=== PATIENT | male | born 1945 | race Caucasian/White ===

== ENCOUNTER → 2018-10-30 | Outpatient (CLI) | payer MEDICARE, BC ==
[~2018-10-30] MED LIST: AMLO1CAP12 PO; ASPI81TA50 PO; ESOM20CA PO; GLUC1TAB91 PO; IBUP1TAB11 PO; MULT-717 PO; RANI150T23 PO; SIMV10TA3 PO
[2018-10-30 09:10] LABS: BASOPHILS # (AUTO) 0.04 x10^3/uL (0-0.1); BASOPHILS % (AUTO) 1 % (0-1); EOSINOPHILS # (AUTO) 0.13 x10^3/uL (0-0.4); EOSINOPHILS % (AUTO) 3 % (1-7); LYMPHOCYTES # (AUTO) 1.15 x10^3/uL (1-3.4); LYMPHOCYTES % (AUTO) 29 % (22-44); MD NO; MEAN CORPUSCULAR HEMOGLOBIN 32.2 pg (27.5-34.5); MEAN CORPUSCULAR HGB CONC 33.9 g/dL (33.2-36.2); MEAN PLATELET VOLUME 8.5 fL (7.4-10.4); MONOCYTES # (AUTO) 0.47 x10^3/uL (0.2-0.8); MONOCYTES % (AUTO) 12 % (2-9); NEUTROPHILS # (AUTO) 2.16 x10^3/uL (1.8-6.8); NEUTROPHILS % (AUTO) 55 % (42-75); PLATELET COUNT 210 x10^3/uL (130-400); RED BLOOD COUNT 5.14 x10^6/uL (4.38-5.82); RED CELL DISTRIBUTION WIDTH 13.4 % (9.4-14.8)
[2018-10-30 09:11] LABS: MICROSCOPIC NOT IND
[2018-10-30 09:13] LABS: CULTURE INDICATED? NO
[2018-10-30 09:17] LABS: ALBUMIN 4.4 g/dL (3.4-5.0); ANION GAP 5 mmol/L (5-15); CALCIUM 9.5 mg/dL (8.5-10.1); CHLORIDE 104 mmol/L (98-107)
[2018-10-30 09:22] LABS: ALANINE AMINOTRANSFERASE 35 U/L (12-78); ALKALINE PHOSPHATASE 72 U/L (45-117); BILIRUBIN,TOTAL 0.8 mg/dL (0.2-1.0); CREATININE 0.87 mg/dL (0.7-1.3); TOTAL PROTEIN 8.2 g/dL (6.4-8.2)
== END | disposition home or self-care (01) ==
LOC: STAR 08:03
PROVIDERS: ATTEND Physician Assistant
DX: Z01.818 Encounter for other preprocedural examination (principal); M17.12 Unilateral primary osteoarthritis, left knee
CPT/HCPCS: 36415; 80053; 81003; 85025; 87081; 87806; 93005; G0475

== ENCOUNTER 2018-11-10 06:01 | Observation (INO) | payer MEDICARE, BC ==
[~2018-11-10] VITALS: Ht 188 cm; Wt 83.9 kg
[2018-11-10] MEDS ORDERED: LACTATED RINGERS 1,000 ML IV SCH (06:17)
[2018-11-10] MEDS ORDERED: VANCOMYCIN PMX 1GM/200ML 200 ML IV ONE (06:30)
[2018-11-10] MEDS ORDERED: KETOROLAC 60 MG/2 ML ONE (06:33)
[2018-11-10] MEDS ORDERED: ROPIvacaine/PF 0.2%, 20 ML ONE ×2 (06:33→06:46)
[2018-11-10] MEDS ORDERED: TRANEXAMIC ACID 100 MG/ML, 10ML ONE (06:33)
[2018-11-10] MEDS ORDERED: morphine SULFATE/PF 1 MG/ML, 10ML ONE (06:34)
[2018-11-10] MEDS ORDERED: BACITRACIN 50,000 UNIT ONE (06:34)
[2018-11-10] MEDS ORDERED: EPINEPHRINE 1 MG/ML, 1ML ONE (06:34)
[2018-11-10] MEDS ORDERED: SODIUM CHLORIDE 0.9% 50 ML ONE (06:34)
[2018-11-10] MEDS ORDERED: FENTANYL PF 250 MCG/5ML ONE ×2 (06:40→08:18)
[2018-11-10] MEDS ORDERED: GABAPENTIN 300 MG CAPSULE PO ONE (07:00)
[2018-11-10] MEDS ORDERED: ACETAMINOPHEN 500 MG TABLET PO ONE (07:00)
[2018-11-10] MEDS ORDERED: ONDANSETRON 2MG/ML, 2ML ONE ×2 (07:21→09:55)
[2018-11-10] MEDS ORDERED: CEFAZOLIN 1,000 MG ONE ×2 (07:21→07:24)
[2018-11-10] MEDS ORDERED: DEXAMETHASONE 4 MG/ML, 1ML ONE (07:21)
[2018-11-10] MEDS ORDERED: GLYCOPYRROLATE 0.2MG/1ML, 5ML ONE (07:21)
[2018-11-10] MEDS ORDERED: ROCURONIUM 10MG/ML,5ML ONE (07:21)
[2018-11-10] MEDS ORDERED: PROPOFOL 10 MG/ML, 20ML ONE (07:21)
[2018-11-10] MEDS ORDERED: NEOSTIGMINE 1 MG/ML, 10ML ONE (07:21)
[2018-11-10] MEDS ORDERED: morphine SULFATE 10 MG/ML, 1ML IVPush PRN (07:30)
[2018-11-10] MEDS ORDERED: TRANEXAMIC ACID 1,000 MG in SODIUM CHLORIDE 0.9% 100 ML IV ONE (07:30)
[2018-11-10] MEDS ORDERED: MORPHINE SULFATE 4 MG/ML, 1ML IVPush PRN (07:30)
[2018-11-10] MEDS ORDERED: ONDANSETRON 2MG/ML, 2ML IV PRN (07:30)
[2018-11-10] MEDS ORDERED: LORazepam 2 MG/ML, 1ML IVPush PRN (07:30)
[2018-11-10] MEDS ORDERED: HALOPERIDOL 5 MG/ML IV PRN (07:30)
[2018-11-10] MEDS ORDERED: DIPHENHYDRAMINE 50 MG CAPSULE PO PRN (07:30)
[2018-11-10] MEDS ORDERED: MEPERIDINE/PF 25MG/0.5ML IVPush PRN (07:30)
[2018-11-10] MEDS ORDERED: LABETALOL 5 MG/ML SYRINGE IV PRN (07:30)
[2018-11-10] MEDS ORDERED: OXYcodone 5 MG/5 ML ORAL.SOL UDC PO PRN (07:30)
[2018-11-10] MEDS ORDERED: ACETAMINOPHEN 325 MG TABLET PO PRN (07:30)
[2018-11-10] MEDS ORDERED: PROMETHAZINE 25 MG/ML, 1ML IM PRN ×2 (07:30)
[2018-11-10] MEDS ORDERED: PROMETHAZINE 25 MG/ML, 1ML IV PRN (07:30)
[2018-11-10] MEDS ORDERED: PROMETHAZINE 25 MG SUPP PR PRN (07:30)
[2018-11-10] MEDS ORDERED: PROMETHAZINE 12.5 MG SUPP PR PRN (07:30)
[2018-11-10] MEDS ORDERED: hydrALAzine 20 MG/ML, 1ML IV PRN (07:30)
[2018-11-10] MEDS ORDERED: ZOLPIDEM 5MG TABLET PO PRN (07:30)
[2018-11-10] MEDS ORDERED: OXYcodone 5 MG/5 ML ORAL.SOL UDC ONE (09:28)
[2018-11-10] MEDS ORDERED: HYDROmorphone 2 MG/ML, 1ML ONE (09:28)
[2018-11-10] MEDS ORDERED: FENTANYL PF 100 MCG/2ML ONE (09:28)
[2018-11-10] MEDS: FENTANYL PF 100 MCG/2ML IV PRN ×2 (09:52→10:02)
[2018-11-10] MEDS: HYDROmorphone 2 MG/ML, 1ML IVPush PRN ×2 (10:09→10:14)
[2018-11-10] MEDS: D5%-0.45% NACL 1,000 ML IV SCH ×2 (12:13→19:00)
[2018-11-10] MEDS: OXYcodone/APAP 7.5/325MG TABLET PO PRN ×3 (13:34→23:39)
[2018-11-10 15:13] VITALS: BP 126/78
[2018-11-10] MEDS: CEFAZOLIN PMX 2GM/50ML 50 ML IVPB SCH ×2 (16:27→23:39)
[2018-11-10] MEDS: ONDANSETRON 2MG/ML, 2ML IVPush PRN (16:31)
[2018-11-10] MEDS: FAMOTIDINE 20 MG TABLET PO SCH (19:45)
[2018-11-10 20:31] VITALS: BP 146/80
[2018-11-10] MEDS ORDERED: SIMVASTATIN 10 MG TABLET PO SCH (21:00)
[2018-11-10 23:50] VITALS: BP 128/77
[2018-11-11] MEDS: D5%-0.45% NACL 1,000 ML IV SCH ×3 (00:49→10:00)
[2018-11-11 03:05] VITALS: BP 131/75
[2018-11-11] MEDS: OXYcodone/APAP 7.5/325MG TABLET PO PRN ×2 (05:32→11:21)
[2018-11-11] MEDS ORDERED: VANCOMYCIN PMX 1GM/200ML 200 ML IVPB ONE (06:30)
[2018-11-11] MEDS: ONDANSETRON 2MG/ML, 2ML IVPush PRN (06:41)
[2018-11-11 07:23] VITALS: BP 127/75
[2018-11-11] MEDS ORDERED: ASPIRIN 325 MG TABLET EC PO SCH (08:00)
[2018-11-11] MEDS: CEFAZOLIN PMX 2GM/50ML 50 ML IVPB SCH (08:18)
[2018-11-11] MEDS: FAMOTIDINE 20 MG TABLET PO SCH (08:19)
[2018-11-11] MEDS ORDERED: BENAZEPRIL 20 MG TABLET PO SCH (09:00)
[2018-11-11] MEDS ORDERED: AMLODIPINE 10 MG TAB PO SCH (09:00)
[2018-11-11] MEDS ORDERED: MULTIVIT-MINERALS/IRON ORAL SOL PO SCH (09:00)
[2018-11-11] MEDS ORDERED: DOCUSATE 100 MG CAPSULE PO SCH (09:00)
[2018-11-11 11:07] VITALS: BP 114/70
== END 2018-11-11 12:15 | disposition home or self-care (01) ==
LOC: OUT 06:01 → ORIP 07:28 → EDSTATUS 07:30 → 4NOR 10:45 → DCLOUNGE 11-11 11:55
PROVIDERS: ADMIT Orthopaedic Surgery; ATTEND Orthopaedic Surgery
DX: M17.12 Unilateral primary osteoarthritis, left knee (principal); Z79.899 Other long term (current) drug therapy
CPT/HCPCS: 27447; 36415; 73560; 85018; 96365; 96366; 96367; 96375; 96376; 97110; 97161; 97165; C1713; C1776; G0378; J0171; J0690; J1100; J1170; J1885; J2274; J2405; J2704; J2710; J2795; J3010; J3370; J7120